=== PATIENT | female | born 1950 | race Caucasian/White ===

== ENCOUNTER → 2018-12-31 | Outpatient (CLI) | payer BC ==
[~2018-12-31] MED LIST: ASPI-496 PO; ENAL5TAB PO; HYDR-3237 PO; UBID200C7 PO
== END | disposition home or self-care (01) ==
LOC: CFH 15:24
PROVIDERS: ATTEND Nurse Practitioner
DX: J34.2 Deviated nasal septum (principal); R51 Headache
CPT/HCPCS: 70486